=== PATIENT | female | born 1985 | race African-American/Black ===

== ENCOUNTER → 2022-06-06 | Emergency (ER) | payer BC, OTHER, SELFPAY ==
[~2022-06-06] VITALS: Ht 160 cm; Wt 83.2 kg
[~2022-06-06] MED LIST: AMOX-117 PO; TETanus/Pertussis (Acell)/Diphther VAC/PF (Tdap-Adult) 0.5ml syringe IMVAC ONE
[2022-06-06 05:51] VITALS: BP 117/81
== END | disposition home or self-care (01) ==
LOC: ER 01:22
DX: S61.451A Open bite of right hand, initial encounter (principal); Z88.1 Allergy status to other antibiotic agents; Z88.2 Allergy status to sulfonamides; Z88.5 Allergy status to narcotic agent; Z88.6 Allergy status to analgesic agent; W55.01XA Bitten by cat, initial encounter; Y93.89 Activity, other specified; Y92.89 Other specified places as the place of occurrence of the external cause; Y99.8 Other external cause status
CPT/HCPCS: 99283